=== PATIENT | female | born 1985 | race Caucasian/White ===

== ENCOUNTER 2016-07-11 10:37 | Day surgery (SDC) | payer OTHER ==
[~2016-07-11] VITALS: Ht 165.1 cm; Wt 94.1 kg
[2016-07-11] VITALS (12 sets, daily range): BP systolic 107–144; BP diastolic 59–76; PULSE 69–88; RESP 16–32; Ht 165.1 cm; Wt 94.1 kg
[2016-07-11] MEDS ORDERED: CEFAZOLIN 2 GM/50 ML (PMX) 50 ML IVPB ONE (11:00)
[2016-07-11] MEDS ORDERED: SOD CHLORIDE 0.9% 1,000 ML IV ONE (11:00)
[2016-07-11 12:28] LABS: ADD SCAN DIFF NO
[2016-07-11 12:37] LABS: BASOPHILS % 0.2 % (0.0-2.0); EOSINOPHILS # 0.2 10^3/ul (0.0-0.5); EOSINOPHILS % 1.9 % (0.0-7.0); HEMATOCRIT 36.5 % (37.0-47.0); HEMOGLOBIN 12.7 g/dl (12.0-16.0); LYMPHOCYTES # 2.8 10^3/ul (0.8-2.9); LYMPHOCYTES % 33.3 % (15.0-51.0); MEAN CORPUSCULAR HEMOGLOBIN 30.5 pg (29.0-33.0); MEAN CORPUSCULAR HGB CONC 34.8 g/dl (32.0-37.0); MEAN CORPUSCULAR VOLUME 87.5 fl (82.0-101.0); MEAN PLATELET VOLUME 11.1 fl (7.4-10.4); MONOCYTE # 0.6 10^3/ul (0.3-0.9); NEUTROPHIL # 4.7 10^3/ul (1.6-7.5); NEUTROPHILS % 57.4 % (39.0-77.0); PLATELET COUNT 291 10^3/UL (140-415); RED BLOOD COUNT 4.17 10^6/ul (4.20-5.40); RED CELL DISTRIBUTION WIDTH 12.3 % (11.5-14.5); WHITE BLOOD COUNT 8.3 10^3/ul (4.8-10.8)
[2016-07-11] MEDS ORDERED: ALBU8.5H3 INH (12:39)
[2016-07-11 12:50] LABS: INR 0.93; PROTIME 12.5 Sec (12.2-14.2)
[2016-07-11 12:51] LABS: PARTIAL THROMBOPLASTIN TIME 28.3 Sec (25.0-35.0)
[2016-07-11] MEDS ORDERED: BUPIVACAINE 0.25% (MPF) 30 ML INJ ONE (13:14)
[2016-07-11 13:16] LABS: CALCIUM 9.2 mg/dl (8.4-10.2); CREATININE 0.65 mg/dl (0.44-1.00)
[2016-07-11] MEDS ORDERED: MEPERIDINE 100 MG INJ ONE (13:21)
[2016-07-11] MEDS ORDERED: PROPOFOL 20 ML ONE (13:21)
[2016-07-11] MEDS ORDERED: LIDOCAINE 2% (SDV) 5 ML INJ ONE (13:21)
[2016-07-11] MEDS ORDERED: GLYCOPYRROLATE 0.4 MG INJ ONE ×3 (13:21→13:28)
[2016-07-11] MEDS ORDERED: SUCCINYLCHOLINE CHLORIDE 100 MG/5 ML SYG IV ONE (13:21)
[2016-07-11] MEDS ORDERED: ROCURONIUM 50 MG INJ ONE ×2 (13:21→13:28)
[2016-07-11] MEDS ORDERED: NEOSTIGMINE 3 MG/3 ML SYRINGE ONE ×2 (13:21→13:42)
[2016-07-11] MEDS ORDERED: CEFAZOLIN 1 GM INJ ONE (13:28)
[2016-07-11] MEDS ORDERED: ONDANSETRON 4 MG INJ ONE (13:28)
[2016-07-11] MEDS ORDERED: METOCLOPRAMIDE 10 MG INJ ONE (13:28)
[2016-07-11] MEDS ORDERED: ONDANSETRON 4 MG INJ IV PRN (13:30)
[2016-07-11] MEDS ORDERED: morphine (1 MG/ML) 10ML SYRINGE IV PRN ×2 (13:30)
[2016-07-11] MEDS ORDERED: HYDROmorphONE (0.2 MG/ML) 10ML SYG IV PRN (13:30)
[2016-07-11] MEDS ORDERED: MEPERIDINE 25 MG INJ IV PRN (13:30)
[2016-07-11] MEDS ORDERED: METOCLOPRAMIDE 10 MG INJ IV PRN (13:30)
[2016-07-11] MEDS ORDERED: EPHEDrine SULFATE 50 MG/5 ML SYG IV PRN (13:30)
[2016-07-11] MEDS ORDERED: DIPHENHYDRAMINE 50 MG INJ IV PRN (13:30)
[2016-07-11] MEDS ORDERED: LABETALOL HCL 20MG INJ IV PRN (13:30)
[2016-07-11] MEDS ORDERED: MIDAZOLAM 1 MG/ML 2 ML INJ IV PRN (13:30)
[2016-07-11] MEDS ORDERED: hydrALAzine 20 MG INJ IV PRN (13:30)
[2016-07-11] MEDS ORDERED: FENTAnyl 50 MCG/ML VIAL IV PRN (13:30)
[2016-07-11] MEDS: HYDROmorphONE (0.2 MG/ML) 10ML SYG IV PRN ×2 (14:21→14:27)
[2016-07-11] MEDS ORDERED: HYDROCODONE/APAP (5/325) TAB PO ONE (14:30)
[2016-07-11] MEDS: FENTAnyl 50 MCG/ML VIAL IV PRN ×2 (14:31→14:46)
--- NOTE | 2016-07-11 14:51 | OPR ---
DATE OF OPERATION: 07/11/2016 INDICATION: This is a 30-year-old female with symptomatic gallstones. She requests surgical excisi on of her gallbladder. Risks, alternatives, benefits, and personnel were discussed with the patient . Patient expresses understanding and consents to the operation. PREOPERATIVE DIAGNOSIS: Symptomatic gallstones. POSTOPERATIVE DIAGNOSIS: Symptomatic gallstones. OPERATION: Laparoscopic cholecystectomy. SURGEON: Carl Fitzpatrick MD SPECIMEN: Gallbladder. COMPLICATIONS: None. ANESTHESIA: General. PROCEDURE: The patient was taken to the OR and prepped and draped in the usual sterile fashion. Roman rgical timeout was performed. IV antibiotics were given. Infraumbilical transverse incision is mad e with a 15 blade. Dissection cautery was carried down to the fascia which was divided with curved Dumas scissors. An 0 Vicryl U-stitch was placed in the fascia. Balloon Gen trocar was introduced . Pneumoperitoneum was established. Midepigastric 12 mm optical trocar and right upper quadrant a nd right upper flank 5 mm optical trocar was placed under direct visualization. Upon initial inspec tion, there were some adhesions to the gallbladder which were taken down bluntly. The cystic duct w as identified. The critical view was established. Cystic artery and cystic duct were divided using a 35 mm Gwynn vascular load stapler. The gallbladder was taken off the gallbladder bed. There w as good hemostasis. Gallbladder was retrieved using EndoCatch bag. Ports were removed under direct visualization and 0- Vicryl U stitch was tied down. Skin was closed using skin aakash. Local an esthesia was injected. Dry dressings were applied. Dictated By: CARL GIVENS/CHET Conf#: [id number] DID#: [id number]
== END 2016-07-11 16:10 | disposition home or self-care (01) ==
LOC: SDS 10:37
PROVIDERS: ATTEND Surgery
DX: K81.1 Chronic cholecystitis (principal); E66.9 Obesity, unspecified; Z68.34 Body mass index [BMI] 34.0-34.9, adult; J45.909 Unspecified asthma, uncomplicated
CPT/HCPCS: 47562; 80048; 84703; 85025; 85610; 85730; 88304; J0330; J0690; J1170; J2175; J2405; J2710; J2765; J3010; Z7512; Z7610